=== PATIENT | female | born 1940 ===

== ENCOUNTER 2017-07-16 16:37 | Emergency (ER) | payer MEDICARE, OTHER ==
[2017-07-16 16:37] VITALS: BMI 26.9
[2017-07-16 16:43] VITALS: BP 153/73; PULSE 74; RESP 16; TEMP 98.3; O2SAT 98
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
--- NOTE | 2017-07-16 18:21 | RAD ---
PROCEDURE: Radiographs of the Lumbar Spine. HISTORY: BACK PAIN COMPARISON: No prior. FINDINGS: BONES: Normal alignment. No listhesis. No fracture. DISC SPACES: Unremarkable. OTHER FINDINGS: None. IMPRESSION: Unremarkable radiographs of the lumbar spine.
== END 2017-07-16 18:54 | disposition home or self-care (01) ==
LOC: H.ER 16:37
DX: M54.42 Lumbago with sciatica, left side (principal); I10 Essential (primary) hypertension; E78.00 Pure hypercholesterolemia, unspecified

== ENCOUNTER 2017-11-30 11:01 | Emergency (ER) | payer MEDICARE, OTHER ==
[2017-11-30 11:27] VITALS: BMI 25.7
[2017-11-30] MEDS ORDERED: Albuterol-Ipratrop 3 mg / 0.5 (3 ml) UD INH STA (11:53)
[2017-11-30] MEDS ORDERED: Albuterol-Ipratrop 3 mg / 0.5 (3 ml) UD ONE (12:03)
--- NOTE | 2017-11-30 12:20 | RAD ---
Date of service: 11/30/2017 HISTORY: chest pain/ r/o infiltrate COMPARISON: Chest radiograph dated 04/14/2016. TECHNIQUE: Chest PA and lateral FINDINGS: LUNGS: Prominent left epicardial fat pad. No focal consolidation. PLEURA: No significant pleural effusion identified. No pneumothorax apparent. CARDIOVASCULAR: Atherosclerotic aortic calcifications. Cardiomediastinal silhouette stably enlarged OSSEOUS STRUCTURES: Unchanged. VISUALIZED UPPER ABDOMEN: Right upper quadrant surgical clips.. OTHER FINDINGS: None. IMPRESSION: No active disease.
[2017-11-30 13:00] LABS: BASO % 0.6 % (0.0-2.0); EOS # 0.6 K/uL (0.0-0.7); EOS % 11.6 % (0.0-4.0); HEMOGLOBIN 12.1 g/dL (12.0-16.0); LYMPH # 0.9 K/uL (1.0-4.3); LYMPH % 17.3 % (20.0-40.0); MEAN CELL VOLUME 99.5 fl (81.0-99.0); MEAN CORPUSCULAR HEMOGLOBIN 32.9 pg (27.0-31.0); MEAN CORPUSCULAR HGB CONC 33.1 g/dL (33.0-37.0); MEAN PLATELET VOLUME 8.6 fl (7.2-11.7); MONO # 0.4 K/uL (0.0-0.8); MONO % 7.3 % (0.0-10.0); NEUT # 3.2 K/uL (1.8-7.0); NEUT % 63.2 % (50.0-75.0); NRBC % 0.1 % (0.0-0.0); RBC 3.68 Mil/uL (3.80-5.20); RED CELL DISTRIBUTION WIDTH 13.6 % (11.5-14.5); WHITE BLOOD COUNT 5.1 K/uL (4.8-10.8)
[2017-11-30 13:10] LABS: ALB/GLOB RATIO 1.2 (1.0-2.1); ALBUMIN 4.1 g/dL (3.5-5.0); ALT/SGPT 32 U/L (9-52); AST/SGOT 28 U/L (14-36); BLOOD UREA NITROGEN 12 mg/dl (7-17); CALCIUM 8.9 mg/dL (8.4-10.2); GFR NON-AFRICAN AMERICAN > 60
--- NOTE | 2017-11-30 13:22 | ED PDOC ---
HPI: CCC, URI, Sore Throat Time Seen by Provider: 11/30/17 11:34 Chief Complaint (Nursing): Shortness Of Breath Chief Complaint (Provider): cough SOB History Per: Patient History/Exam Limitations: no limitations Onset/Duration Of Symptoms: Days (2 months), Intermittent Episodes, Gradual Current Symptoms Are (Timing): Intermittent Episodes Sick Contacts (Context): None Associated Symptoms: Sore Throat, Cough. denies: Sputum, Neck Pain, Sinus D rainage, Myalgias, Nasal Congestion, Vomiting, Diarrhea Severity: Mild Additional Complaint(s): 77yo female c/o cough ongoing intermittently for almost 2 months. Associated w mild sore throat and mild dyspnea. Denies fever, hemoptysis, weakness or orthopnea. Had CT chest performed end october, has report, unremarkable. Saw ENT Dr aparicio told has possible GERD pending GI eval. Past Medical History Reviewed: Historical Data, Nursing Documentation, Vital Signs Vital Signs: Last Vital Signs Temp 97.8 F 11/30/17 11:25 Pulse 70 11/30/17 11:25 Resp 18 11/30/17 11:25 BP 137/76 11/30/17 11:25 Pulse Ox 99 11/30/17 11:54 - Medical History PMH: Anxiety, HTN, Hypercholesterolemia Other PMH: med reviewed, not on ACEI - Surgical History Surgical History: Cholecystectomy - Family History Family History: States: Unknown Family Hx - Living Arrangements Living Arrangements: With Family - Social History Current smoker - smoking cessation education provided: No - Home Medications Home Medications: Ambulatory Orders Medication Instructions Recorded Ondansetron [Zofran Odt] 4 mg PO Q8H PRN #15 odt 04/14/16 Naproxen [Naprosyn Tab] 250 mg PO BID PRN #15 tab 04/25/16 Acetaminophen [Acetaminophen 8 650 mg PO Q8 #24 tab 07/16/17 Hour] Meloxicam [Mobic] 15 mg PO DAILY #14 tab 07/16/17 - Allergies Allergies/Adverse Reactions: Allergies Allergy/AdvReac Type Severity Reaction Status Date / Time No Known Allergies Allergy Verified 07/16/17 16:39 Review of Systems ROS Statement: Except As Marked, All Systems Reviewed And Found Negative Constitutional: Negative for: Fever ENT: Positive for: Mouth Pain, Throat Pain. Negative for: Ear Pain, Nose Congestion, Mouth Swelling Cardiovascular: Negative for: Chest Pain Respiratory: Positive for: Cough, Shortness of Breath. Negative for: Hemoptysis, SOB with Exertion Gastrointestinal: Negative for: Nausea, Vomiting Genitourinary Female: Negative for: Dysuria Musculoskeletal: Negative for: Neck Pain, Arm Pain Skin: Negative for: Rash, Lesions Neurological: Negative for: Weakness, Numbness, Headache, Dizziness Psych: Negative for: Depression Physical Exam - Reviewed Nursing Documentation Reviewed: Yes Vital Signs Reviewed: Yes - Physical Exam Appears: Positive for: Well, Non-toxic, No Acute Distress Head Exam: Positive for: ATRAUMATIC, NORMAL INSPECTION, NORMOCEPHALIC Skin: Positive for: Normal Color, Warm, DRY Eye Exam: Positive for: EOMI, Normal appearance, PERRL ENT: Positive for: Normal ENT Inspection, Other (1cm ulcer soft pallate R). Negative for: Tonsillar Exudate Neck: Positive for: Painless ROM Cardiovascular/Chest: Positive for: Regular Rate, Rhythm Respiratory: Positive for: CNT, Normal Breath Sounds Gastrointestinal/Abdominal: Positive for: Soft. Negative for: Tenderness, Guarding Back: Positive for: Normal Inspection Extremity: Positive for: Normal ROM Neurologic/Psych: Positive for: Alert, Oriented. Negative for: Motor/Sensory Deficits - Laboratory Results Result Diagrams: 11/30/17 12:30 11/30/17 12:30 - ECG ECG: Positive for: Interpreted By Me ECG Rhythm: Positive for: Sinus Rhythm, Nonspecific Changes Rate: 70 O2 Sat by Pulse Oximetry: 99 Pulse Ox Interpretation: Normal - Radiology X-Ray: Read By Radiologist (CXR) X-Ray Interpretation: No Acute Disease Medical Decision Making Medical Decision Making: shira ordered to see if improvement CXR neg CT within last month neg meds reviewed, not on ACEI takes metoprolol for BP labs and CXR reviewed no clear source of cough, ?told by ENT she had GERD, discussed GERD avoidance strategies w pt and family, she is on a PPI, PMD to refer to GI. Dr Woods paged for awareness but stable for outpatient workup given lack of abnormal lab findings, lack of significant CXR findings, lack of tachycardia, lack of hypoxia and normal baseline mental status. Disposition - Clinical Impression Clinical Impression: Chronic cough - Patient ED Disposition Is Patient to be Admitted: No Counseled Patient/Family Regarding: Studies Performed, Diagnosis - Disposition Referrals: Mckenna Woods MD [Staff Provider] - Disposition: Routine/Home Disposition Time: 13:45 Condition: FAIR Additional Instructions: Followup with Dr Woods for further testing and treatment. Instructions: Cough, Adult (DC) Forms: [facility] (Maltese) Print Language: SINHALA
[2017-11-30 13:27] LABS: B-TYPE NATRIURETIC PEPTIDE 222 pg/ml (0-900)
[2017-11-30 14:30] VITALS: RESP 19
[2017-11-30 15:44] VITALS: BP 127/78; TEMP 97.6
--- NOTE | 2017-12-01 00:14 | CARD ---
APPROVED REPORT Date of service: 11/30/2017 EKG Measurement Heart [id number] <Conclusion> Normal sinus rhythm Nonspecific ST abnormality Abnormal ECG
[2017-12-02 15:14] VITALS: PULSE 70; O2SAT 99
== END 2017-11-30 15:44 | disposition home or self-care (01) ==
LOC: H.ER 11:01
DX: R05 Cough (principal); E78.00 Pure hypercholesterolemia, unspecified; F41.9 Anxiety disorder, unspecified; I10 Essential (primary) hypertension

== ENCOUNTER 2018-04-01 00:22 | Emergency (ER) | payer MEDICARE, OTHER ==
[2018-04-01 00:22] VITALS: BMI 25.7
[2018-04-01 00:37] VITALS: RESP 18
[2018-04-01] MEDS ORDERED: Albuterol 0.083% Inhal Sol (2.5 mg/3 mL) UD INH STA (00:56)
[2018-04-01] MEDS ORDERED: Promethazine DM 12.5 mg-30 mg/10 ml Syrup PO STA (00:56)
[2018-04-01] MEDS ORDERED: Albuterol 0.083% Inhal Sol (2.5 mg/3 mL) UD ONE (01:10)
[2018-04-01] MEDS ORDERED: Promethazine 6.25 MG/5 ML CUP ONE (01:10)
[2018-04-01 02:53] VITALS: BP 140/76; PULSE 92; TEMP 98; O2SAT 99
--- NOTE | 2018-04-01 02:59 | ED PDOC ---
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 Patient was prescribed Dexilent for cough secondary to gastritis. Patient reports that for the past x3 days the cough has gotten worse. Patient saw her PMD, Mohit, x2 days ago on Friday and was given Phenergine syrup with codeine and cough suppressant. Patient reports that the cough came back after she was finished wi th her medication. Patient states that she coughs so much she has pain in her joints and neck as well as headache. She additionally reports the cough was keeping her up, preventing her from sleeping. Patient has an appointment tomorrow with her PMD. PMD: Mohit Past Medical History Reviewed: Historical Data, Nursing Documentation, Vital Signs Vital Signs: Last Vital Signs Temp 98.0 F 04/01/18 02:52 Pulse 92 H 04/01/18 02:52 Resp 18 04/01/18 02:52 BP 140/76 04/01/18 02:52 Pulse Ox 99 04/01/18 02:52 - Medical History PMH: Anxiety, HTN, Hypercholesterolemia - Surgical History Surgical History: Cholecystectomy - Family History Family History: States: Unknown Family Hx - Home Medications Home Medications: Ambulatory Orders Medication Instructions Recorded Ondansetron [Zofran Odt] 4 mg PO Q8H PRN #15 odt 04/14/16 Naproxen [Naprosyn Tab] 250 mg PO BID PRN #15 tab 04/25/16 Acetaminophen [Acetaminophen 8 650 mg PO Q8 #24 tab 07/16/17 Hour] Meloxicam [Mobic] 15 mg PO DAILY #14 tab 07/16/17 RX: Prednisone [Deltasone] 40 mg PO DAILY 3 Days #6 tablet 04/01/18 - Allergies Allergies/Adverse Reactions: Allergies Allergy/AdvReac Type Severity Reaction Status Date / Time No Known Allergies Allergy Verified 07/16/17 16:39 Review of Systems ROS Statement: Except As Marked, All Systems Reviewed And Found Negative Constitutional: Positive for: Malaise (body aches) Respiratory: Positive for: Cough Musculoskeletal: Positive for: Neck Pain, Other (Joint Pain) Neurological: Positive for: Headache Physical Exam - Reviewed Nursing Documentation Reviewed: Yes Vital Signs Reviewed: Yes - Physical Exam Appears: Positive for: Well, Non-toxic, No Acute Distress Head Exam: Positive for: ATRAUMATIC, NORMAL INSPECTION, NORMOCEPHALIC Skin: Positive for: Normal Color, Warm, DRY Eye Exam: Positive for: EOMI, Normal appearance, PERRL ENT: Positive for: Normal ENT Inspection Neck: Positive for: Normal, Painless ROM Cardiovascular/Chest: Positive for: Regular Rate, Rhythm. Negative for: Murmur Respiratory: Positive for: Normal Breath Sounds. Negative for: Respiratory Distress Gastrointestinal/Abdominal: Positive for: Normal Exam, Soft. Negative for: Tenderness Back: Positive for: Normal Inspection Extremity: Positive for: Normal ROM. Negative for: Pedal Edema, Deformity Neurologic/Psych: Positive for: Alert, Oriented. Negative for: Motor/Sensory Deficits - ECG O2 Sat by Pulse Oximetry: 99 (RA) Pulse Ox Interpretation: Normal Medical Decision Making Medical Decision Making: Time: 00:56 A/P: 78 y/o feamle with acute acute exacerbation of chronic cough. Patient is very well appearing with normal vitals. Chest x-ray was ordered and is normal showing no abnormalities. Patient will be given medications for symptomatic relief. Will try short course of steroids and patient was strongly encouraged to follow up with her PMD tomorrow as scheduled. * CXR * Albuterol * Flexeril 5 mg * Ibuprofen 600 mg * Phenergan DM 10 ml Scribe Attestation: Documented by Kel Fitzpatrick acting as a scribe for Mike Gipson MD. Provider Scribe Attestation: All medical record entries made by the Scribe were at my direction and personally dictated by me. I have reviewed the chart and agree that the record accurately reflects my personal performance of the history, physical exam, me dical decision making, and the department course for this patient. I have also personally directed, reviewed, and agree with the discharge instructions and disposition. Disposition - Clinical Impression Clinical Impression: Chronic cough - Disposition Referrals: Mckenna Woods MD [Staff Provider] - Sal Estevez Jr., MD [Medical Doctor] - Disposition: Routine/Home Disposition Time: 03:00 Condition: GOOD Prescriptions: RX: Prednisone [Deltasone] 40 mg PO DAILY 3 Days #6 tablet Instructions: Cough in Adults Forms: [facility] (Kyrgyz) Print Language: JAPANESE
--- NOTE | 2018-04-01 08:11 | RAD ---
Date of service: 04/01/2018 HISTORY: cough COMPARISON: 11/30/2017 TECHNIQUE: Chest PA and lateral FINDINGS: LUNGS: No active pulmonary disease. PLEURA: No significant pleural effusion identified. No pneumothorax apparent. CARDIOVASCULAR: There is presence of aortic atherosclerotic calcification on x-ray. Normal cardiac size. No pulmonary vascular congestion. OSSEOUS STRUCTURES: No significant abnormalities. VISUALIZED UPPER ABDOMEN: Normal. OTHER FINDINGS: None. IMPRESSION: No active disease. No interval pathology noted.
== END 2018-04-01 02:52 | disposition home or self-care (01) ==
LOC: H.ER 00:22
DX: R05 Cough (principal); E78.00 Pure hypercholesterolemia, unspecified; F41.9 Anxiety disorder, unspecified; I10 Essential (primary) hypertension

== ENCOUNTER 2018-06-23 02:47 | Emergency (ER) | payer MEDICARE, OTHER ==
[2018-06-23 02:48] VITALS: BMI 25.7
[2018-06-23 03:07] VITALS: RESP 16
[2018-06-23] MEDS ORDERED: Sodium Chloride 0.9% 1,000 ML IV STA (03:07)
--- NOTE | 2018-06-23 03:38 | ED PDOC ---
Syncope/Near Syncope/Dizziness Time Seen by Provider: 06/23/18 03:04 Chief Complaint (Nursing): Weakness/Neurological Deficit Chief Complaint (Provider): weakness History Per: Patient History/Exam Limitations: no limitations Onset/Duration Of Symptoms: Mins (in ED, just prior to being signed in) Current Symptoms Are (Timing): Still Present Severity: Moderate Additional Complaint(s): 78 year old female with a past medical history of hypertension and anxiety in the ED with her who is a patient presents to the ED for an evaluation of weakness. While in the ED, patient went to the bathroom to have a bowel movement, when she suddenly felt weak and lightheaded. Patient denies having a syncopal event, and states that the symptoms are resolved at this time. Patient states that she has had similar episodes in the past usually due to anxiety or stress. Patient states that she has anxiety and stress now due to her 's current illness. Patient states that she has had multiple workups for this in the past for this, all of which were normal. PMD: Sal Estevez Jr, MD Past Medical History Reviewed: Historical Data, Nursing Documentation, Vital Signs Vital Signs: Last Vital Signs Temp Pulse 84 06/23/18 03:03 Resp 16 06/23/18 03:03 BP 154/77 H 06/23/18 03:03 Pulse Ox 95 06/23/18 03:03 MARYURI Report Viewed: Yes Primary Care Physician: Sal Estevez Jr, MD - Medical History PMH: Anxiety, HTN, Hypercholesterolemia - Surgical History Surgical History: Cholecystectomy - Family History Family History: States: No Known Family Hx - Social History Current smoker - smoking cessation education provided: No Alcohol: None Drugs: Denies - Home Medications Home Medications: Ambulatory Orders Medication Instructions Recorded Ondansetron [Zofran Odt] 4 mg PO Q8H PRN #15 odt 04/14/16 Naproxen [Naprosyn Tab] 250 mg PO BID PRN #15 tab 04/25/16 Acetaminophen [Acetaminophen 8 650 mg PO Q8 #24 tab 07/16/17 Hour] Meloxicam [Mobic] 15 mg PO DAILY #14 tab 07/16/17 Prednisone [Deltasone] 40 mg PO DAILY 3 Days #6 tablet 04/01/18 - Allergies Allergies/Adverse Reactions: Allergies Allergy/AdvReac Type Severity Reaction Status Date / Time No Known Allergies Allergy Verified 07/16/17 16:39 Review of Systems ROS Statement: Except As Marked, All Systems Reviewed And Found Negative Cardiovascular: Positive for: Light Headedness Neurological: Positive for: Weakness Physical Exam - Reviewed Nursing Documentation Reviewed: Yes Vital Signs Reviewed: Yes - Physical Exam Appears: Positive for: Well, Non-toxic, No Acute Distress Head Exam: Positive for: ATRAUMATIC, NORMOCEPHALIC Skin: Positive for: Normal Color, Warm, Dry Eye Exam: Positive for: Normal appearance Cardiovascular/Chest: Positive for: Regular Rate, Rhythm Respiratory: Positive for: Normal Breath Sounds Neurological/Psych: Positive for: Awake, Alert, Oriented (3x), Cerebellar Tests (normal), 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 Initial plan: * EKG * CMP * lipase * udip * CBC with differential * accucheck * IV NS 1,000 ml IV 1,000 mls/hr * reevaluation ScribeAttestation: Documented byHazel Alonso, acting as a scribe for Awais Mancera MD. Provider ScribeAttestation: All medical record entries made by the Scribe were at my direction and personally dictated by me. I have reviewed the chart and agree that the record accurately reflects my personal performance of the history, physical exam, medical decision making, and the department course for this patient. I have also personally directed, reviewed, and agree with the discharge instructions and disposition. Disposition - Clinical Impression Clinical Impression: Vasovagal reaction - Disposition Referrals: Sal Estevez Jr., MD [Primary Care Provider] - Disposition: Routine/Home Disposition Time: 03:30 Condition: IMPROVED Instructions: Vasovagal Response Forms: [facility] (Lao) Print Language: TURKISH
[2018-06-23 03:50] LABS: BASO % 0.4 % (0.0-2.0); EOS # 1.3 K/uL (0.0-0.7); EOS % 16.6 % (0.0-4.0); HEMOGLOBIN 12.1 g/dL (12.0-16.0); LYMPH # 1.3 K/uL (1.0-4.3); LYMPH % 17.3 % (20.0-40.0); MEAN CORPUSCULAR HEMOGLOBIN 33.3 pg (27.0-31.0); MEAN CORPUSCULAR HGB CONC 34.4 g/dL (33.0-37.0); MONO # 0.6 K/uL (0.0-0.8); MONO % 7.1 % (0.0-10.0); NEUT # 4.6 K/uL (1.8-7.0); NEUT % 58.6 % (50.0-75.0); NRBC % 0.1 % (0.0-0.0); RBC 3.62 Mil/uL (3.80-5.20); RED CELL DISTRIBUTION WIDTH 14.5 % (11.5-14.5); WHITE BLOOD COUNT 7.8 K/uL (4.8-10.8)
[2018-06-23 03:59] LABS: ALB/GLOB RATIO 1.2 (1.0-2.1); ALBUMIN 4.6 g/dL (3.5-5.0); ALT/SGPT 25 U/L (9-52); AST/SGOT 29 U/L (14-36); BLOOD UREA NITROGEN 18 mg/dl (7-17); CALCIUM 8.4 mg/dL (8.4-10.2); GFR NON-AFRICAN AMERICAN > 60; LIPASE 206 U/L (23-300)
[2018-06-23 04:09] VITALS: BP 145/90; PULSE 89; TEMP 98.7
[2018-06-23 07:00] VITALS: O2SAT 95
--- NOTE | 2018-06-25 11:00 | CARD ---
APPROVED REPORT Date of service: 06/23/2018 EKG Measurement Heart [id number] <Conclusion> Normal sinus rhythm Prolonged QT Abnormal ECG
== END 2018-06-23 04:11 | disposition home or self-care (01) ==
LOC: H.ER 02:47
DX: R55 Syncope and collapse (principal); I10 Essential (primary) hypertension
CPT/HCPCS: 80053; 82948; 83690; 85025; 93005; 99285; J7030